=== PATIENT | female | born 1950 | race Caucasian/White ===

== ENCOUNTER 2016-11-15 12:20 | Outpatient (CLI) | payer BC ==
[2016-11-15 15:05] LABS: ALT (SGPT) 21 U/L (8-55); AST (SGOT) 24 U/L (5-34); Albumin 4.1 g/dL (3.4-4.8); Alkaline Phosphatase 75 U/L (40-150); Anion Gap 15 mmol/L (10-20); BUN (Urea Nitrogen) 13 mg/dL (9.8-20.1); Bilirubin, Total 0.4 mg/dL (0.2-1.2); Calc. Creatinine Clearance 0 mL/min (70-130); Carbon Dioxide 25 mmol/L (23-31); Cardiac Risk 2.8 (Less than 4.5); Chloride 106 mmol/L (98-107); Cholesterol 111 mg/dl (< 200 Desired); Estimated GFR-MDRD 58; Globulin 2.6 g/dL (2.4-3.5); Glucose 91 mg/dL (80-115); HDL Cholesterol 40 mg/dL (>60 Neg Risk); LDL Cholesterol, Calculated 49 mg/dL; Potassium 4.4 mmol/L (3.5-5.1); Protein, Total 6.7 g/dL (6.0-8.3); Sodium 142 mmol/L (136-145); Triglycerides 109 mg/dL (Less than 150)
== END 2016-11-15 12:21 | disposition home or self-care (01) ==
LOC: NAV LABSP 12:20
PROVIDERS: ATTEND Internal Medicine Cardiovascular Disease
DX: E78.00 Pure hypercholesterolemia, unspecified (principal)
CPT/HCPCS: 36415; 80053; 80061